=== PATIENT | male | born 1965 | race Caucasian/White ===

== ENCOUNTER 2017-11-23 09:54 | Observation (INO) | payer MEDICARE, MEDICAID ==
[~2017-11-23] VITALS: Ht 170.2 cm; Wt 70.0 kg
[~2017-11-23 09:54] MED LIST: DIAZ5TAB PO; HYDR-3307 PO
[2017-11-23] MEDS ORDERED: DIPHENHYDRAMINE 25 MG CAPSULE ONE (10:24)
[2017-11-23] MEDS ORDERED: LORazepam 1MG TABLET ONE (10:25)
[2017-11-23] MEDS ORDERED: HALOPERIDOL 5 MG/ML ONE (10:29)
[2017-11-23] MEDS ORDERED: LORazepam 2 MG/ML, 1ML IM PRN ×2 (10:30→14:30)
[2017-11-23] MEDS ORDERED: DIPHENHYDRAMINE 25 MG CAPSULE PO ONE (10:30)
[2017-11-23] MEDS ORDERED: HALOPERIDOL 5 MG/ML IM ONE (10:30)
[2017-11-23] MEDS ORDERED: LORazepam 1MG TABLET PO ONE (10:30)
[2017-11-23 10:49] LABS: BASOPHILS # (AUTO) 0.03 x10^3/uL (0-0.1); BASOPHILS % (AUTO) 0 % (0-1); EOSINOPHILS # (AUTO) 0.22 x10^3/uL (0-0.4); EOSINOPHILS % (AUTO) 3 % (1-7); LYMPHOCYTES # (AUTO) 1.65 x10^3/uL (1-3.4); LYMPHOCYTES % (AUTO) 21 % (22-44); MD NO; MEAN CORPUSCULAR HEMOGLOBIN 30.6 pg (27.5-34.5); MEAN CORPUSCULAR HGB CONC 34.7 g/dL (33.2-36.2); MEAN CORPUSCULAR VOLUME 88.1 fL (81-97); MEAN PLATELET VOLUME 7.7 fL (7.4-10.4); MONOCYTES # (AUTO) 0.93 x10^3/uL (0.2-0.8); MONOCYTES % (AUTO) 12 % (2-9); NEUTROPHILS # (AUTO) 5.17 x10^3/uL (1.8-6.8); NEUTROPHILS % (AUTO) 65 % (42-75); PLATELET COUNT 209 x10^3/uL (130-400); RED BLOOD COUNT 5.05 x10^6/uL (4.38-5.82); RED CELL DISTRIBUTION WIDTH 15.2 % (9.4-14.8)
[2017-11-23 10:57] LABS: ALANINE AMINOTRANSFERASE 269 U/L (12-78); ALBUMIN 3.6 g/dL (3.4-5.0); ANION GAP 8 mmol/L (5-15); CALCIUM 8.1 mg/dL (8.5-10.1); CHLORIDE 102 mmol/L (98-107); CREATININE 0.87 mg/dL (0.7-1.3)
[2017-11-23 11:00] LABS: ALKALINE PHOSPHATASE 113 U/L (45-117); BILIRUBIN,TOTAL 0.9 mg/dL (0.2-1.0); TOTAL PROTEIN 7.5 g/dL (6.4-8.2)
[2017-11-23 11:03] LABS: ACETAMINOPHEN < 2 mcg/mL (10-30); SALICYLATE LEVEL < 1.7 mg/dL (2.8-20.0)
[2017-11-23 11:25] LABS: MICROSCOPIC NOT IND
[2017-11-23 11:28] LABS: CULTURE INDICATED? NO
[2017-11-23 11:46] LABS: AMPHETAMINE SCREEN, URINE Positive (Negative); BARBITURATE SCREEN, URINE Negative (Negative); BENZODIAZEPINE SCREEN, URINE Negative (Negative); CANNABINOID SCREEN, URINE Positive (Negative); COCAINE SCREEN, URINE Negative (Negative); METHADONE SCREEN, URINE Negative (Negative); OPIATE SCREEN, URINE Negative (Negative)
[2017-11-23] MEDS ORDERED: LISI-167 PO (14:05)
[2017-11-23] MEDS ORDERED: ARIP5TAB13 PO (14:05)
[2017-11-23] MEDS ORDERED: PARO20TA4 PO (14:05)
[2017-11-23] MEDS ORDERED: CLON0.1T PO (14:05)
[2017-11-23] MEDS ORDERED: NICO-487 TD (14:05)
[2017-11-23] MEDS ORDERED: ATEN100T PO (14:05)
[2017-11-23] MEDS ORDERED: BENZ2TAB6 PO (14:05)
[2017-11-23] MEDS ORDERED: ONDANSETRON ODT 4 MG PO PRN (14:30)
[2017-11-23] MEDS ORDERED: ZIPRASIDONE 20 MG INJ IM PRN (14:30)
[2017-11-23] MEDS ORDERED: NICOTINE 21 MG/24 HR PATCH.TD24 TD SCH (14:30)
[2017-11-23] MEDS: PLEASE ENTER HEIGHT AND WEIGHT MC SCH ×2 (16:21→22:30)
[2017-11-23] MEDS: ATENOLOL 100 MG TABLET PO SCH (22:00)
[2017-11-24] MEDS: PLEASE ENTER HEIGHT AND WEIGHT MC SCH ×3 (06:30→22:30)
[2017-11-24] MEDS ORDERED: ZIPRASIDONE 20 MG INJ IM ONE (07:42)
[2017-11-24] MEDS: ARIPIPRAZOLE 5 MG TABLET PO SCH (09:00)
[2017-11-24] MEDS: NICOTINE 21 MG/24 HR PATCH.TD24 TD SCH (09:00)
[2017-11-24] MEDS: BENZTROPINE 1 MG TABLET PO SCH (09:00)
[2017-11-24] MEDS: ATENOLOL 100 MG TABLET PO SCH ×2 (09:00→20:27)
[2017-11-24] MEDS: PAROXETINE 20 MG TABLET PO SCH (09:00)
[2017-11-24] MEDS ORDERED: ATENOLOL 50 MG TABLET ONE ×2 (09:04→20:22)
[2017-11-24] MEDS: LISINOPRIL 10 MG TABLET PO SCH (09:14)
[2017-11-24 20:13] VITALS: BP 134/78
[2017-11-24] MEDS: ACETAMINOPHEN 325 MG TABLET PO PRN (20:26)
[2017-11-25] MEDS: PLEASE ENTER HEIGHT AND WEIGHT MC SCH ×3 (06:30→22:30)
[2017-11-25] MEDS: ARIPIPRAZOLE 5 MG TABLET PO SCH (08:19)
[2017-11-25] MEDS: ATENOLOL 100 MG TABLET PO SCH ×2 (08:20→20:51)
[2017-11-25] MEDS: LISINOPRIL 10 MG TABLET PO SCH (08:20)
[2017-11-25] MEDS: BENZTROPINE 1 MG TABLET PO SCH (08:21)
[2017-11-25] MEDS: NICOTINE 21 MG/24 HR PATCH.TD24 TD SCH (08:22)
[2017-11-25] MEDS: PAROXETINE 20 MG TABLET PO SCH (08:25)
[2017-11-25 08:35] VITALS: BP 137/76
[2017-11-25] MEDS: ACETAMINOPHEN 325 MG TABLET PO PRN (15:11)
[2017-11-25 20:07] VITALS: BP 142/79
[2017-11-26] MEDS: PLEASE ENTER HEIGHT AND WEIGHT MC SCH (06:30)
[2017-11-26 08:00] VITALS: BP 144/83
[2017-11-26] MEDS ORDERED: DIPHENHYDRAMINE 25 MG CAPSULE PO PRN (09:30)
[2017-11-26] MEDS: ARIPIPRAZOLE 5 MG TABLET PO SCH (10:03)
[2017-11-26] MEDS: BENZTROPINE 1 MG TABLET PO SCH (10:03)
[2017-11-26] MEDS: PAROXETINE 20 MG TABLET PO SCH (10:03)
[2017-11-26] MEDS: ATENOLOL 100 MG TABLET PO SCH (10:03)
[2017-11-26] MEDS: LISINOPRIL 10 MG TABLET PO SCH (10:04)
[2017-11-26] MEDS: NICOTINE 21 MG/24 HR PATCH.TD24 TD SCH (10:04)
== END 2017-11-26 12:04 ==
LOC: ED 12:20 → EDIP 12:22 → SUATTDRO 13:50 → ED 14:01 → 2N 11-24 07:28
PROVIDERS: ADMIT Internal Medicine; ATTEND Internal Medicine
DX: R45.851 Suicidal ideations (principal); F31.9 Bipolar disorder, unspecified; F23 Brief psychotic disorder; F64.9 Gender identity disorder, unspecified; I10 Essential (primary) hypertension; M54.9 Dorsalgia, unspecified; F15.10 Other stimulant abuse, uncomplicated; F12.20 Cannabis dependence, uncomplicated; Z87.891 Personal history of nicotine dependence; Z90.49 Acquired absence of other specified parts of digestive tract; Z91.14 Patient's other noncompliance with medication regimen
CPT/HCPCS: 36415; 80053; 80307; 80329; 81003; 85025; 86704; 86706; 86708; 86803; 87340; 93005; 96372; 99285; G0378; J1630; J3486; Q0163; G0480

== ENCOUNTER 2018-01-20 12:34 | Emergency (ER) | payer MEDICARE, MEDICAID ==
[~2018-01-20] VITALS: Ht 170.2 cm; Wt 59.0 kg
[~2018-01-20 12:34] MED LIST changes: +ARIP5TAB13 PO; +ATEN100T PO; +BENZ2TAB6 PO; +CLON0.1T PO; +LISI-167 PO; +NICO-487 TD; +PARO20TA4 PO
[2018-01-20 12:42] VITALS: BP 108/72
[2018-01-20] MEDS ORDERED: HYDROcodone/APAP 5/325 TABLET PO ONE (13:00)
[2018-01-20] MEDS ORDERED: HYDROcodone/APAP 5/325 TABLET ONE (13:04)
== END 2018-01-20 13:21 | disposition home or self-care (01) ==
LOC: ED 13:05
DX: Z48.01 Encounter for change or removal of surgical wound dressing (principal); I10 Essential (primary) hypertension
CPT/HCPCS: 99283

== ENCOUNTER 2018-03-26 03:03 | Emergency (ER) | payer MEDICAID, OTHER ==
[~2018-03-26] VITALS: Ht 180.3 cm; Wt 64.0 kg
[2018-03-26 03:07] VITALS: BP 139/89
[2018-03-26] MEDS ORDERED: KETOROLAC 30 MG/1 ML ONE (03:28)
[2018-03-26] MEDS ORDERED: KETOROLAC 30 MG/1 ML IM ONE (03:30)
== END 2018-03-26 03:43 | disposition home or self-care (01) ==
LOC: ED 03:38
DX: G89.29 Other chronic pain (principal); M54.5 Low back pain; I10 Essential (primary) hypertension
CPT/HCPCS: 96372; 99283; J1885

== ENCOUNTER 2018-03-27 12:47 | Emergency (ER) | payer MEDICAID ==
[~2018-03-27] VITALS: Ht 167.6 cm; Wt 66.0 kg
[2018-03-27] MEDS ORDERED: hydrOXyzine 10MG TABLET ONE (13:21)
[2018-03-27] MEDS ORDERED: hydrOXyzine 10MG TABLET PO ONE (13:30)
[2018-03-27 14:11] VITALS: BP 124/86
== END 2018-03-27 14:32 | disposition home or self-care (01) ==
LOC: ED 14:26
DX: F41.1 Generalized anxiety disorder (principal); I10 Essential (primary) hypertension
CPT/HCPCS: 99284

== ENCOUNTER 2018-03-30 08:31 | Emergency (ER) | payer MEDICARE, MEDICAID ==
[~2018-03-30] VITALS: Ht 170.2 cm; Wt 63.0 kg
[2018-03-30] MEDS ORDERED: LORazepam 1MG TABLET ONE (08:53)
[2018-03-30] MEDS ORDERED: LORazepam 1MG TABLET PO ONE (09:00)
[2018-03-30] MEDS ORDERED: PAROXETINE 20 MG TABLET PO SCH (09:00)
[2018-03-30 09:45] VITALS: BP 160/109
== END 2018-03-30 10:08 | disposition home or self-care (01) ==
LOC: ED 08:55
DX: F41.1 Generalized anxiety disorder (principal); I10 Essential (primary) hypertension; F20.9 Schizophrenia, unspecified; F31.9 Bipolar disorder, unspecified; F12.10 Cannabis abuse, uncomplicated
CPT/HCPCS: 99283; 99284

== ENCOUNTER 2018-03-31 11:22 | Observation (INO) | payer MEDICARE, MEDICAID ==
[~2018-03-31] VITALS: Ht 170.2 cm; Wt 63.5 kg
[2018-03-31 11:59] LABS: BASOPHILS # (AUTO) 0.02 x10^3/uL (0-0.1); BASOPHILS % (AUTO) 0 % (0-1); EOSINOPHILS # (AUTO) 0.05 x10^3/uL (0-0.4); EOSINOPHILS % (AUTO) 1 % (1-7); LYMPHOCYTES # (AUTO) 1.83 x10^3/uL (1-3.4); LYMPHOCYTES % (AUTO) 20 % (22-44); MD NO; MEAN CORPUSCULAR HEMOGLOBIN 28.9 pg (27.5-34.5); MEAN CORPUSCULAR HGB CONC 33.8 g/dL (33.2-36.2); MEAN CORPUSCULAR VOLUME 85.3 fL (81-97); MEAN PLATELET VOLUME 7.7 fL (7.4-10.4); MONOCYTES # (AUTO) 0.41 x10^3/uL (0.2-0.8); MONOCYTES % (AUTO) 4 % (2-9); NEUTROPHILS % (AUTO) 75 % (42-75); PLATELET COUNT 269 x10^3/uL (130-400); RED BLOOD COUNT 6.16 x10^6/uL (4.38-5.82); RED CELL DISTRIBUTION WIDTH 12.6 % (9.4-14.8)
[2018-03-31 12:04] LABS: AMPHETAMINE SCREEN, URINE Negative (Negative); BARBITURATE SCREEN, URINE Negative (Negative); BENZODIAZEPINE SCREEN, URINE Negative (Negative); CANNABINOID SCREEN, URINE Positive (Negative); COCAINE SCREEN, URINE Negative (Negative); METHADONE SCREEN, URINE Negative (Negative); OPIATE SCREEN, URINE Negative (Negative)
[2018-03-31 12:10] LABS: ALBUMIN 3.7 g/dL (3.4-5.0); ANION GAP 7 mmol/L (5-15); CALCIUM 8.8 mg/dL (8.5-10.1); CHLORIDE 102 mmol/L (98-107)
[2018-03-31 12:15] LABS: CREATININE 0.87 mg/dL (0.7-1.3)
[2018-03-31 12:16] LABS: ALANINE AMINOTRANSFERASE 179 U/L (12-78); ALKALINE PHOSPHATASE 126 U/L (45-117); BILIRUBIN,TOTAL 0.8 mg/dL (0.2-1.0); SALICYLATE LEVEL 2.2 mg/dL (2.8-20.0); TOTAL PROTEIN 7.9 g/dL (6.4-8.2)
[2018-03-31 12:18] LABS: ACETAMINOPHEN < 2 mcg/mL (10-30)
[2018-03-31] MEDS ORDERED: ONDANSETRON 2MG/ML, 2ML IVPush PRN (13:30)
[2018-03-31] MEDS ORDERED: ACETAMINOPHEN 325 MG TABLET PO PRN (13:30)
[2018-03-31] MEDS ORDERED: LORazepam 1MG TABLET PO PRN (13:30)
[2018-03-31] MEDS ORDERED: LORazepam 1MG TABLET ONE (13:48)
[2018-03-31] MEDS ORDERED: ATENOLOL 100 MG TABLET PO SCH (21:00)
[2018-03-31] MEDS ORDERED: CLONIDINE HCL 0.1 MG PO SCH (21:00)
[2018-03-31 21:39] VITALS: BP 159/90
[2018-04-01] MEDS ORDERED: NICOTINE TD SCH (09:00)
[2018-04-01] MEDS ORDERED: LISINOPRIL 10 MG TABLET PO SCH (09:00)
[2018-04-01] MEDS ORDERED: BENZTROPINE MESYLATE 2 MG PO SCH (09:00)
[2018-04-01] MEDS ORDERED: ARIPIPRAZOLE 5 MG TABLET PO SCH (09:00)
[2018-04-01] MEDS ORDERED: PAROXETINE HCL 20 MG PO SCH (09:00)
== END 2018-03-31 22:31 ==
LOC: ED 12:53 → EDIP 12:54 → ED 13:08
PROVIDERS: ADMIT Hospitalist; ATTEND Hospitalist
DX: R45.851 Suicidal ideations (principal); F33.2 Major depressive disorder, recurrent severe without psychotic features; I10 Essential (primary) hypertension; G47.00 Insomnia, unspecified; F12.20 Cannabis dependence, uncomplicated; F17.210 Nicotine dependence, cigarettes, uncomplicated; F22 Delusional disorders
CPT/HCPCS: 36415; 80053; 80307; 80329; 85025; 99285; G0378; G0480

== ENCOUNTER 2018-04-18 14:42 | Emergency (ER) | payer MEDICARE, MEDICAID ==
[~2018-04-18] VITALS: Ht 170.2 cm; Wt 66.8 kg
[2018-04-18] MEDS ORDERED: DIPH25TA65 PO (15:12)
[2018-04-18] MEDS ORDERED: LORazepam 1MG TABLET ONE (15:20)
[2018-04-18] MEDS ORDERED: LORazepam 1MG TABLET PO ONE (15:30)
[2018-04-18 15:39] LABS: BASOPHILS # (AUTO) 0.03 x10^3/uL (0-0.1); BASOPHILS % (AUTO) 0 % (0-1); EOSINOPHILS # (AUTO) 0.56 x10^3/uL (0-0.4); EOSINOPHILS % (AUTO) 6 % (1-7); LYMPHOCYTES # (AUTO) 1.98 x10^3/uL (1-3.4); LYMPHOCYTES % (AUTO) 23 % (22-44); MD NO; MEAN CORPUSCULAR HEMOGLOBIN 29.1 pg (27.5-34.5); MEAN CORPUSCULAR HGB CONC 33.4 g/dL (33.2-36.2); MEAN CORPUSCULAR VOLUME 87.3 fL (81-97); MEAN PLATELET VOLUME 8.3 fL (7.4-10.4); MONOCYTES # (AUTO) 0.55 x10^3/uL (0.2-0.8); MONOCYTES % (AUTO) 6 % (2-9); NEUTROPHILS # (AUTO) 5.65 x10^3/uL (1.8-6.8); NEUTROPHILS % (AUTO) 64 % (42-75); PLATELET COUNT 197 x10^3/uL (130-400); RED BLOOD COUNT 5.16 x10^6/uL (4.38-5.82); RED CELL DISTRIBUTION WIDTH 15.4 % (9.4-14.8)
[2018-04-18 15:51] LABS: ALBUMIN 3.5 g/dL (3.4-5.0); ANION GAP 3 mmol/L (5-15); CALCIUM 8.7 mg/dL (8.5-10.1); CHLORIDE 109 mmol/L (98-107); CREATININE 0.85 mg/dL (0.7-1.3)
[2018-04-18 15:52] LABS: SALICYLATE LEVEL < 1.7 mg/dL (2.8-20.0)
[2018-04-18 15:54] LABS: ACETAMINOPHEN < 2 mcg/mL (10-30)
[2018-04-18 15:54] LABS: AMPHETAMINE SCREEN, URINE Positive (Negative); BARBITURATE SCREEN, URINE Negative (Negative); BENZODIAZEPINE SCREEN, URINE Negative (Negative); CANNABINOID SCREEN, URINE Positive (Negative); COCAINE SCREEN, URINE Negative (Negative); METHADONE SCREEN, URINE Negative (Negative); OPIATE SCREEN, URINE Negative (Negative)
[2018-04-18] MEDS ORDERED: ATENOLOL 100 MG TABLET PO ONE (16:05)
[2018-04-18] MEDS ORDERED: LISINOPRIL 10 MG TABLET ONE (16:15)
[2018-04-18] MEDS ORDERED: LISINOPRIL 10 MG TABLET PO ONE (16:30)
[2018-04-18 17:19] VITALS: BP 182/113
== END 2018-04-18 17:25 | disposition home or self-care (01) ==
LOC: ED 15:21
DX: F15.10 Other stimulant abuse, uncomplicated (principal); F41.9 Anxiety disorder, unspecified; I10 Essential (primary) hypertension; Z72.89 Other problems related to lifestyle; Z79.899 Other long term (current) drug therapy; F17.200 Nicotine dependence, unspecified, uncomplicated
CPT/HCPCS: 36415; 80048; 80307; 80329; 82040; 85025; 99284; G0480

== ENCOUNTER 2018-04-19 09:07 | Emergency (ER) | payer MEDICARE, MEDICAID ==
[~2018-04-19] VITALS: Ht 170.2 cm; Wt 65.0 kg
[~2018-04-19 09:07] MED LIST changes: +DIPH25TA65 PO
[2018-04-19 09:10] VITALS: BP 153/97
[2018-04-19] MEDS ORDERED: SULFAMETH./TRIMETHOPRIM DS 800MG/160MG TABLET PO ONE (09:30)
[2018-04-19] MEDS ORDERED: HYDROcodone/APAP 5/325 TABLET PO ONE (09:30)
[2018-04-19] MEDS ORDERED: CEPHALEXIN 500 MG CAPSULE PO ONE (09:30)
[2018-04-19] MEDS ORDERED: IBUPROFEN 200 MG TABLET PO ONE (09:30)
[2018-04-19] MEDS ORDERED: HYDROcodone/APAP 5/325 TABLET ONE ×2 (09:40→09:46)
[2018-04-19] MEDS ORDERED: CEPHALEXIN 500 MG CAPSULE ONE (09:41)
[2018-04-19] MEDS ORDERED: IBUPROFEN 200 MG TABLET ONE (09:41)
[2018-04-19] MEDS ORDERED: SULFAMETH./TRIMETHOPRIM DS 800MG/160MG TABLET ONE (09:41)
== END 2018-04-19 10:08 | disposition home or self-care (01) ==
LOC: ED 09:42
DX: L02.01 Cutaneous abscess of face (principal); M54.5 Low back pain; F41.1 Generalized anxiety disorder; F20.9 Schizophrenia, unspecified; F31.9 Bipolar disorder, unspecified; I10 Essential (primary) hypertension; Z90.49 Acquired absence of other specified parts of digestive tract
CPT/HCPCS: 99284

== ENCOUNTER 2018-08-24 11:58 | Emergency (ER) | payer MEDICAID, MEDICARE ==
[~2018-08-24] VITALS: Ht 170.2 cm; Wt 62.6 kg
[2018-08-24 13:51] LABS: BASOPHILS # (AUTO) 0.05 x10^3/uL (0-0.1); BASOPHILS % (AUTO) 0 % (0-1); EOSINOPHILS # (AUTO) 0.14 x10^3/uL (0-0.4); EOSINOPHILS % (AUTO) 1 % (1-7); LYMPHOCYTES # (AUTO) 1.92 x10^3/uL (1-3.4); LYMPHOCYTES % (AUTO) 16 % (22-44); MD NO; MEAN CORPUSCULAR HEMOGLOBIN 30.4 pg (27.5-34.5); MEAN CORPUSCULAR HGB CONC 34.4 g/dL (33.2-36.2); MEAN CORPUSCULAR VOLUME 88.5 fL (81-97); MEAN PLATELET VOLUME 7.5 fL (7.4-10.4); MONOCYTES # (AUTO) 0.81 x10^3/uL (0.2-0.8); MONOCYTES % (AUTO) 7 % (2-9); NEUTROPHILS # (AUTO) 8.89 x10^3/uL (1.8-6.8); NEUTROPHILS % (AUTO) 75 % (42-75); PLATELET COUNT 326 x10^3/uL (130-400); RED BLOOD COUNT 4.74 x10^6/uL (4.38-5.82); RED CELL DISTRIBUTION WIDTH 14.4 % (9.4-14.8)
[2018-08-24 13:56] VITALS: BP 124/84
[2018-08-24 14:03] LABS: ALANINE AMINOTRANSFERASE 117 U/L (12-78); ALBUMIN 3.9 g/dL (3.4-5.0); ANION GAP 11 mmol/L (5-15); CALCIUM 8.9 mg/dL (8.5-10.1); CHLORIDE 100 mmol/L (98-107); CREATININE 1.13 mg/dL (0.7-1.3)
[2018-08-24 14:05] LABS: ALKALINE PHOSPHATASE 94 U/L (45-117); BILIRUBIN,TOTAL 1.3 mg/dL (0.2-1.0); TOTAL PROTEIN 7.5 g/dL (6.4-8.2)
== END 2018-08-24 15:07 | disposition home or self-care (01) ==
LOC: ED 14:19
DX: J39.8 Other specified diseases of upper respiratory tract (principal); I10 Essential (primary) hypertension; Z59.0 Homelessness; Z76.0 Encounter for issue of repeat prescription; Z72.9 Problem related to lifestyle, unspecified; M79.10 Myalgia, unspecified site
CPT/HCPCS: 36415; 71046; 80053; 85025; 87806; 99284; G0475

== ENCOUNTER 2018-08-26 14:21 | Emergency (ER) | payer MEDICARE ==
[~2018-08-26] VITALS: Ht 180.3 cm; Wt 55.0 kg
[~2018-08-26 14:21] MED LIST changes: -CLON0.1T PO; +CLON0.1T22 PO
[2018-08-26] MEDS ORDERED: ZIPRASIDONE 20 MG INJ IM ONE ×5 (14:24→21:08)
[2018-08-26 15:18] LABS: LYMPHOCYTES % (AUTO) 30 % (22-44); MEAN CORPUSCULAR HEMOGLOBIN 30.7 pg (27.5-34.5); MEAN CORPUSCULAR HGB CONC 34.4 g/dL (33.2-36.2); MEAN CORPUSCULAR VOLUME 89.4 fL (81-97); MEAN PLATELET VOLUME 7.6 fL (7.4-10.4); MONOCYTES % (AUTO) 9 % (2-9); NEUTROPHILS % (AUTO) 58 % (42-75); PLATELET COUNT 279 x10^3/uL (130-400); RED BLOOD COUNT 4.91 x10^6/uL (4.38-5.82); RED CELL DISTRIBUTION WIDTH 14.7 % (9.4-14.8)
[2018-08-26 15:19] LABS: BASOPHILS % (AUTO) 0 % (0-1); EOSINOPHILS # (AUTO) 0.26 x10^3/uL (0-0.4); EOSINOPHILS % (AUTO) 3 % (1-7); LYMPHOCYTES # (AUTO) 2.33 x10^3/uL (1-3.4); MD NO; NEUTROPHILS # (AUTO) 4.58 x10^3/uL (1.8-6.8)
[2018-08-26 15:22] LABS: ACETAMINOPHEN < 2 mcg/mL (10-30); ALBUMIN 4.3 g/dL (3.4-5.0); ANION GAP 9 mmol/L (5-15); CALCIUM 8.8 mg/dL (8.5-10.1); CHLORIDE 105 mmol/L (98-107); CREATININE 1.12 mg/dL (0.7-1.3); SALICYLATE LEVEL < 1.7 mg/dL (2.8-20.0)
[2018-08-26] MEDS ORDERED: DIAZ5TAB PO (16:26)
[2018-08-26] MEDS ORDERED: LORazepam 1MG TABLET PO PRN (18:00)
[2018-08-26] MEDS ORDERED: POLYETHYLENE GLYCOL 17 GM PACKET PO PRN (18:00)
[2018-08-26] MEDS ORDERED: ONDANSETRON ODT 4 MG PO PRN (18:00)
[2018-08-26 20:45] LABS: AMPHETAMINE SCREEN, URINE Positive (Negative); BARBITURATE SCREEN, URINE Negative (Negative); BENZODIAZEPINE SCREEN, URINE Negative (Negative); CANNABINOID SCREEN, URINE Positive (Negative); COCAINE SCREEN, URINE Negative (Negative); METHADONE SCREEN, URINE Negative (Negative); OPIATE SCREEN, URINE Negative (Negative)
[2018-08-27] MEDS ORDERED: LORazepam 1MG TABLET ONE (06:46)
[2018-08-27] MEDS ORDERED: ZIPRASIDONE 20 MG INJ IM ONE ×2 (06:49→07:00)
[2018-08-27] MEDS ORDERED: BENZTROPINE MESYLATE 2 MG PO SCH (09:00)
[2018-08-27] MEDS ORDERED: SENNA/DOCUSATE TABLET PO SCH (09:00)
[2018-08-27] MEDS ORDERED: LISINOPRIL 10 MG TABLET PO SCH (09:00)
[2018-08-27] MEDS ORDERED: ARIPIPRAZOLE 5 MG TABLET PO SCH (09:00)
[2018-08-27 09:29] LABS: BASOPHILS # (AUTO) 0.03 x10^3/uL (0-0.1); BASOPHILS % (AUTO) 1 % (0-1); EOSINOPHILS # (AUTO) 0.23 x10^3/uL (0-0.4); EOSINOPHILS % (AUTO) 5 % (1-7); LYMPHOCYTES # (AUTO) 1.78 x10^3/uL (1-3.4); LYMPHOCYTES % (AUTO) 35 % (22-44); MD NO; MEAN CORPUSCULAR HEMOGLOBIN 29.5 pg (27.5-34.5); MEAN CORPUSCULAR VOLUME 89.4 fL (81-97); MEAN PLATELET VOLUME 7.6 fL (7.4-10.4); MONOCYTES # (AUTO) 0.59 x10^3/uL (0.2-0.8); MONOCYTES % (AUTO) 12 % (2-9); NEUTROPHILS # (AUTO) 2.46 x10^3/uL (1.8-6.8); NEUTROPHILS % (AUTO) 48 % (42-75); PLATELET COUNT 233 x10^3/uL (130-400); RED BLOOD COUNT 4.76 x10^6/uL (4.38-5.82); RED CELL DISTRIBUTION WIDTH 14.7 % (9.4-14.8)
[2018-08-27 09:37] LABS: ALBUMIN 3.1 g/dL (3.4-5.0); ANION GAP 5 mmol/L (5-15); CALCIUM 8.5 mg/dL (8.5-10.1); CHLORIDE 109 mmol/L (98-107)
[2018-08-27 09:40] LABS: ALANINE AMINOTRANSFERASE 83 U/L (12-78); ALKALINE PHOSPHATASE 80 U/L (45-117); BILIRUBIN,TOTAL 0.4 mg/dL (0.2-1.0); TOTAL PROTEIN 6.7 g/dL (6.4-8.2)
[2018-08-27] MEDS ORDERED: BENZTROPINE 1 MG TABLET ONE (10:29)
[2018-08-27] MEDS ORDERED: ARIPIPRAZOLE 15 MG TABLET ONE (10:29)
[2018-08-27] MEDS ORDERED: LISINOPRIL 10 MG TABLET ONE (10:29)
[2018-08-27] MEDS ORDERED: SENNA/DOCUSATE TABLET ONE (10:29)
[2018-08-27 10:38] VITALS: BP 160/94
[2018-08-27] MEDS ORDERED: PAROXETINE 20 MG TABLET PO SCH (12:00)
[2018-08-28] MEDS ORDERED: BENZTROPINE 1 MG TABLET PO SCH (11:48)
== END 2018-08-27 11:01 | disposition home or self-care (01) ==
LOC: ED 17:15 → UNDOADMOB 18:30 → EDIP 18:30
DX: R45.1 Restlessness and agitation (principal); R45.851 Suicidal ideations; F31.9 Bipolar disorder, unspecified; I10 Essential (primary) hypertension; F20.9 Schizophrenia, unspecified; F41.1 Generalized anxiety disorder; Z90.49 Acquired absence of other specified parts of digestive tract
CPT/HCPCS: 36415; 80048; 80053; 80307; 80329; 82040; 85025; 96372; 99283; J3486; G0480

== ENCOUNTER 2018-09-06 18:26 | Observation (INO) | payer MEDICARE, MEDICAID ==
[~2018-09-06] VITALS: Ht 167.6 cm; Wt 65.0 kg
[2018-09-06 19:12] LABS: BASOPHILS # (AUTO) 0.05 x10^3/uL (0-0.1); BASOPHILS % (AUTO) 0 % (0-1); EOSINOPHILS # (AUTO) 0.54 x10^3/uL (0-0.4); EOSINOPHILS % (AUTO) 5 % (1-7); LYMPHOCYTES # (AUTO) 3.49 x10^3/uL (1-3.4); LYMPHOCYTES % (AUTO) 29 % (22-44); MD NO; MEAN CORPUSCULAR HEMOGLOBIN 30.4 pg (27.5-34.5); MEAN CORPUSCULAR HGB CONC 34.5 g/dL (33.2-36.2); MEAN CORPUSCULAR VOLUME 88.2 fL (81-97); MEAN PLATELET VOLUME 7.9 fL (7.4-10.4); MONOCYTES # (AUTO) 0.73 x10^3/uL (0.2-0.8); MONOCYTES % (AUTO) 6 % (2-9); NEUTROPHILS # (AUTO) 7.08 x10^3/uL (1.8-6.8); NEUTROPHILS % (AUTO) 60 % (42-75); PLATELET COUNT 273 x10^3/uL (130-400); RED BLOOD COUNT 4.86 x10^6/uL (4.38-5.82); RED CELL DISTRIBUTION WIDTH 14.5 % (9.4-14.8)
[2018-09-06 19:21] LABS: ALBUMIN 3.4 g/dL (3.4-5.0); ANION GAP 5 mmol/L (5-15); CALCIUM 8.7 mg/dL (8.5-10.1); CHLORIDE 104 mmol/L (98-107); CREATININE 0.87 mg/dL (0.7-1.3)
[2018-09-06 19:27] LABS: ACETAMINOPHEN < 2 mcg/mL (10-30); SALICYLATE LEVEL < 1.7 mg/dL (2.8-20.0)
[2018-09-06 19:31] LABS: AMPHETAMINE SCREEN, URINE Positive (Negative); BARBITURATE SCREEN, URINE Negative (Negative); BENZODIAZEPINE SCREEN, URINE Negative (Negative); CANNABINOID SCREEN, URINE Positive (Negative); COCAINE SCREEN, URINE Negative (Negative); METHADONE SCREEN, URINE Negative (Negative); OPIATE SCREEN, URINE Negative (Negative)
[2018-09-06] MEDS ORDERED: LORazepam 2 MG/ML, 1ML IVPush ONE (20:30)
[2018-09-06] MEDS: ATENOLOL 100 MG TABLET PO SCH (20:55)
[2018-09-06] MEDS ORDERED: DIPHENHYDRAMINE 50 MG CAPSULE PO PRN (21:00)
[2018-09-06] MEDS ORDERED: ACETAMINOPHEN 325 MG TABLET PO PRN (21:00)
[2018-09-06] MEDS ORDERED: ZIPRASIDONE 20 MG INJ IM PRN (21:00)
[2018-09-06] MEDS ORDERED: ONDANSETRON ODT 4 MG PO PRN (21:00)
[2018-09-06] MEDS ORDERED: POLYETHYLENE GLYCOL 17 GM PACKET PO PRN (21:00)
[2018-09-06] MEDS ORDERED: ZIPRASIDONE 20MG CAPSULE PO PRN (21:00)
[2018-09-06] MEDS ORDERED: DOCUSATE 100 MG CAPSULE PO PRN (21:00)
[2018-09-06] MEDS ORDERED: DIAZEPAM 5 MG TABLET ONE (21:26)
[2018-09-06] MEDS ORDERED: AMLODIPINE 5 MG TABLET ONE (21:26)
[2018-09-06] MEDS: AMLODIPINE 5 MG TABLET PO SCH (21:29)
[2018-09-06] MEDS: DIAZEPAM 5 MG TABLET PO SCH ×2 (21:29→23:57)
[2018-09-06 23:38] VITALS: BP 133/82
[2018-09-07 08:00] VITALS: BP 145/89
[2018-09-07] MEDS: AMLODIPINE 5 MG TABLET PO SCH (08:14)
[2018-09-07] MEDS: ATENOLOL 100 MG TABLET PO SCH (08:15)
[2018-09-07] MEDS: PAROXETINE 20 MG TABLET PO SCH (08:15)
[2018-09-07] MEDS: BENZTROPINE 1 MG TABLET PO SCH (08:15)
[2018-09-07] MEDS: ARIPIPRAZOLE 5 MG TABLET PO SCH (08:16)
[2018-09-07] MEDS: DIAZEPAM 5 MG TABLET PO SCH (08:26)
[2018-09-07] MEDS ORDERED: LISINOPRIL 10 MG TABLET PO SCH (09:00)
[2018-09-08 08:00] VITALS: BP_SYST 113; BP_SYST 144; BP_DIAS 75; BP_DIAS 85
[2018-09-08] MEDS: ARIPIPRAZOLE 5 MG TABLET PO SCH (08:02)
[2018-09-08] MEDS: BENZTROPINE 1 MG TABLET PO SCH (08:03)
[2018-09-08] MEDS: AMLODIPINE 5 MG TABLET PO SCH (08:03)
[2018-09-08] MEDS: DIAZEPAM 5 MG TABLET PO SCH (08:03)
[2018-09-08] MEDS: PAROXETINE 20 MG TABLET PO SCH (08:03)
[2018-09-08] MEDS ORDERED: AMLO-150 PO (13:18)
== END 2018-09-08 15:00 ==
LOC: ED 20:36 → SUATTDRO 20:41 → EDIP 20:52 → INTOOBSV 20:52 → 2N 23:35
PROVIDERS: ADMIT Family Medicine; ATTEND Internal Medicine
DX: R45.851 Suicidal ideations (principal); R45.850 Homicidal ideations; F31.9 Bipolar disorder, unspecified; I10 Essential (primary) hypertension; I25.10 Atherosclerotic heart disease of native coronary artery without angina pectoris; B19.20 Unspecified viral hepatitis C without hepatic coma; F12.10 Cannabis abuse, uncomplicated; F15.10 Other stimulant abuse, uncomplicated; F17.210 Nicotine dependence, cigarettes, uncomplicated; F20.9 Schizophrenia, unspecified; Z79.899 Other long term (current) drug therapy; Z91.14 Patient's other noncompliance with medication regimen; Z91.5 Personal history of self-harm
CPT/HCPCS: 36415; 80048; 80307; 80329; 82040; 85025; 96372; 99284; G0378; J3486; G0480

== ENCOUNTER 2019-01-26 06:57 | Emergency (ER) | payer MEDICARE, MEDICAID ==
[~2019-01-26] VITALS: Ht 160 cm; Wt 59.0 kg
[~2019-01-26 06:57] MED LIST changes: +AMLO-150 PO
[2019-01-26 07:07] VITALS: BP 169/116
== END 2019-01-26 07:52 ==
LOC: ED 07:46
DX: F15.20 Other stimulant dependence, uncomplicated (principal); F19.959 Other psychoactive substance use, unspecified with psychoactive substance-induced psychotic disorder, unspecified; F34.9 Persistent mood [affective] disorder, unspecified; F41.1 Generalized anxiety disorder; F20.9 Schizophrenia, unspecified; I10 Essential (primary) hypertension; F31.9 Bipolar disorder, unspecified
CPT/HCPCS: 99283

== ENCOUNTER 2019-07-15 15:40 | Emergency (ER) | payer MEDICARE, MEDICAID ==
[~2019-07-15] VITALS: Ht 170.2 cm; Wt 68.0 kg
[~2019-07-15 15:40] MED LIST changes: -HYDR-3307 PO; +HYDR-36 PO
[2019-07-15] MEDS ORDERED: LORazepam 1MG TABLET PO ONE (16:00)
--- NOTE | 2019-07-15 16:24 | NUR ---
PATIENT IS MALE. IDENTIFIES FEMALE. SHE STATES SHE WANTS "TO RUN INTO TRAFFIC OR CRASH HER CAR AND ". PATIENT ALSO COMPLAINS OF LEFT SHOULDER PAIN. RATES PAIN AT 8/10. PATIENT IS ON LEGAL HOLD FO SI. PATIENT BELONGINGS HAVE BEEN INVENTORIED AND STORED INTO STORAGE LOCKER. PATIENT WILL BE WATCHED AROUND THE CLOCK. PATIENT IS RESTING ON BED. PATIENT IS NOT CURRENTLY IN A SUICIDE SECURED ROOM.
[2019-07-15 16:33] LABS: ALANINE AMINOTRANSFERASE 88 U/L (12-78); ALBUMIN 4.1 g/dL (3.4-5.0); ANION GAP 8 mmol/L (5-15); BASOPHILS % (AUTO) 1 % (0-1); CALCIUM 8.7 mg/dL (8.5-10.1); CHLORIDE 105 mmol/L (98-107); CREATININE 1.01 mg/dL (0.7-1.3); EOSINOPHILS % (AUTO) 2 % (1-7); LYMPHOCYTES # (AUTO) 2.55 x10^3/uL (1-3.4); LYMPHOCYTES % (AUTO) 21 % (22-44); MD NO; MEAN CORPUSCULAR HEMOGLOBIN 30.3 pg (27.5-34.5); MEAN CORPUSCULAR HGB CONC 34.3 g/dL (33.2-36.2); MEAN CORPUSCULAR VOLUME 88.3 fL (81-97); MEAN PLATELET VOLUME 8.1 fL (7.4-10.4); MONOCYTES # (AUTO) 0.97 x10^3/uL (0.2-0.8); MONOCYTES % (AUTO) 8 % (2-9); NEUTROPHILS # (AUTO) 8.36 x10^3/uL (1.8-6.8); NEUTROPHILS % (AUTO) 68 % (42-75); PLATELET COUNT 221 x10^3/uL (130-400); RED BLOOD COUNT 5.34 x10^6/uL (4.38-5.82); RED CELL DISTRIBUTION WIDTH 14.3 % (9.4-14.8); SALICYLATE LEVEL 3.8 mg/dL (2.8-20.0)
[2019-07-15 16:35] LABS: ALKALINE PHOSPHATASE 159 U/L (45-117); BILIRUBIN,TOTAL 0.8 mg/dL (0.2-1.0); TOTAL PROTEIN 7.9 g/dL (6.4-8.2)
[2019-07-15] MEDS ORDERED: LORazepam 1MG TABLET ONE (16:48)
--- NOTE | 2019-07-15 17:46 | NUR ---
TP RN: Carlos POTTS will evaluate pt
--- NOTE | 2019-07-15 17:59 | NUR ---
PT MOVED TO 41. REPORT FROM ESTRELLA MOLINA. PT AWAITING TELEPSYCH.
--- NOTE | 2019-07-15 19:15 | NUR ---
ATTEMPTED T O GET URINE SAMPLE FROM PATIENT. PT STATES UNABLE TO PROVIDE SAMPLE AT THIS TIME. ROOM SECURED. SITTER OUTSIDE ROOM. WILL CONTINUE TO MONITOR.
--- NOTE | 2019-07-15 19:56 | NUR ---
Report to marcelina Carpenter.
[2019-07-15 20:39] VITALS: BP 162/95
--- NOTE | 2019-07-15 20:50 | NUR ---
PT AMBULATES WITH STEADY GAIT. NOW ASKING FOR TAXI VOUCHER. VOUCHER TO CUSTODIAL PROVIDED.
== END 2019-07-15 20:56 | disposition home or self-care (01) ==
LOC: ED 17:02
DX: R45.851 Suicidal ideations (principal); Z76.5 Malingerer [conscious simulation]; I10 Essential (primary) hypertension; F20.9 Schizophrenia, unspecified; F31.9 Bipolar disorder, unspecified
CPT/HCPCS: 36415; 80053; 80307; 85025; 93005; 99284

== ENCOUNTER 2019-12-05 10:17 | Emergency (ER) | payer MEDICARE, MEDICAID ==
[~2019-12-05] VITALS: Ht 170.2 cm; Wt 61.6 kg
--- NOTE | 2019-12-05 11:52 | NUR ---
Pt to room from lobby, ambulatory with steady gait. Pt provided hospital gown to change into and warm blanket. Pt provided privacy to change.
--- NOTE | 2019-12-05 12:16 | NUR ---
YUE RN: ALDA CABRALES TO SEE PT.
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
[2019-12-05 12:23] VITALS: BP 139/84
[2019-12-05] MEDS ORDERED: LORazepam 1MG TABLET PO ONE (12:30)
--- NOTE | 2019-12-05 12:33 | NUR ---
ALDA QUILTING MACHINE HELPER IN ROOM
[2019-12-05 12:37] LABS: BASOPHILS # (AUTO) 0.03 x10^3/uL (0-0.1); BASOPHILS % (AUTO) 0 % (0-1); EOSINOPHILS # (AUTO) 0.28 x10^3/uL (0-0.4); EOSINOPHILS % (AUTO) 3 % (1-7); LYMPHOCYTES # (AUTO) 1.84 x10^3/uL (1-3.4); LYMPHOCYTES % (AUTO) 22 % (22-44); MD NO; MEAN CORPUSCULAR HEMOGLOBIN 29.6 pg (27.5-34.5); MEAN CORPUSCULAR HGB CONC 33.3 g/dL (33.2-36.2); MEAN CORPUSCULAR VOLUME 88.9 fL (81-97); MEAN PLATELET VOLUME 8.4 fL (7.4-10.4); MONOCYTES # (AUTO) 0.57 x10^3/uL (0.2-0.8); MONOCYTES % (AUTO) 7 % (2-9); NEUTROPHILS # (AUTO) 5.54 x10^3/uL (1.8-6.8); NEUTROPHILS % (AUTO) 67 % (42-75); PLATELET COUNT 180 x10^3/uL (130-400); RED BLOOD COUNT 4.53 x10^6/uL (4.38-5.82); RED CELL DISTRIBUTION WIDTH 15.5 % (9.4-14.8)
[2019-12-05 12:48] LABS: ALANINE AMINOTRANSFERASE 130 U/L (12-78); ANION GAP 4 mmol/L (5-15); CALCIUM 8.4 mg/dL (8.5-10.1); CHLORIDE 108 mmol/L (98-107); CREATININE 0.75 mg/dL (0.7-1.3)
[2019-12-05 12:50] LABS: ALKALINE PHOSPHATASE 125 U/L (45-117); BILIRUBIN,TOTAL 0.6 mg/dL (0.2-1.0); TOTAL PROTEIN 7.1 g/dL (6.4-8.2)
[2019-12-05 12:54] LABS: SALICYLATE LEVEL < 1.7 mg/dL (2.8-20.0)
--- NOTE | 2019-12-05 12:57 | NUR ---
REPORT TO SYEDA DE LA ROSA, PLAN OF CARE DISCUSSED
[2019-12-05] MEDS ORDERED: ARIPIPRAZOLE 10 MG TABLET PO SCH (13:00)
[2019-12-05] MEDS ORDERED: PAROXETINE 20 MG TABLET PO SCH (13:00)
[2019-12-05] MEDS ORDERED: DIAZEPAM 5 MG TABLET PO ONE (13:00)
--- NOTE | 2019-12-05 14:00 | NUR ---
ASSUMED CARE. PT SLEEPING IN SECURED ROOM IN DIRECT VIEW OF SITTER.
[2019-12-05] MEDS ORDERED: ARIPIPRAZOLE 10 MG TABLET ONE (15:30)
[2019-12-05] MEDS ORDERED: LORazepam 1MG TABLET ONE (15:30)
[2019-12-05] MEDS ORDERED: DIAZEPAM 5 MG TABLET ONE (15:30)
--- NOTE | 2019-12-05 15:58 | NUR ---
medicated per david. linden held because pt states it makes his legs hurt when he takes it. provided sandwich tray
[2019-12-05 16:09] LABS: MICROSCOPIC AUTO
[2019-12-05 16:11] LABS: CULTURE INDICATED? NO
[2019-12-05 17:11] LABS: AMPHETAMINE SCREEN, URINE Positive (Negative); BARBITURATE SCREEN, URINE Negative (Negative); BENZODIAZEPINE SCREEN, URINE Negative (Negative); CANNABINOID SCREEN, URINE Positive (Negative); COCAINE SCREEN, URINE Negative (Negative); METHADONE SCREEN, URINE Negative (Negative); OPIATE SCREEN, URINE Negative (Negative)
--- NOTE | 2019-12-05 18:23 | NUR ---
TP RN: PT ACCEPTED BY [facility].
--- NOTE | 2019-12-05 18:35 | NUR ---
REPORT TO [facility] AND PT TO BE TRANSPORTED TO FLOOR
[2019-12-05] MEDS ORDERED: QUETIAPINE 25MG TABLET PO SCH (21:00)
== END 2019-12-05 19:00 ==
LOC: ED 13:17
DX: R45.851 Suicidal ideations (principal); F32.9 Major depressive disorder, single episode, unspecified; F41.9 Anxiety disorder, unspecified; F15.10 Other stimulant abuse, uncomplicated; I10 Essential (primary) hypertension
CPT/HCPCS: 36415; 80053; 80307; 81001; 85025; 99285

== ENCOUNTER 2019-12-30 13:35 | Emergency (ER) | payer MEDICARE, MEDICAID ==
[~2019-12-30] VITALS: Ht 170.2 cm; Wt 64.8 kg
[2019-12-30 13:37] VITALS: BP 137/84
[2019-12-30] MEDS ORDERED: hydrOXYzine 50 MG/ML IM PRN (14:00)
[2019-12-30 14:18] LABS: BASOPHILS # (AUTO) 0.04 x10^3/uL (0-0.1); BASOPHILS % (AUTO) 1 % (0-1); EOSINOPHILS # (AUTO) 0.24 x10^3/uL (0-0.4); EOSINOPHILS % (AUTO) 3 % (1-7); LYMPHOCYTES # (AUTO) 2.29 x10^3/uL (1-3.4); LYMPHOCYTES % (AUTO) 27 % (22-44); MD NO; MEAN CORPUSCULAR HGB CONC 33.6 g/dL (33.2-36.2); MEAN CORPUSCULAR VOLUME 89.2 fL (81-97); MEAN PLATELET VOLUME 8.4 fL (7.4-10.4); MONOCYTES # (AUTO) 0.48 x10^3/uL (0.2-0.8); MONOCYTES % (AUTO) 6 % (2-9); NEUTROPHILS # (AUTO) 5.43 x10^3/uL (1.8-6.8); NEUTROPHILS % (AUTO) 64 % (42-75); PLATELET COUNT 246 x10^3/uL (130-400); RED BLOOD COUNT 4.57 x10^6/uL (4.38-5.82); RED CELL DISTRIBUTION WIDTH 14.9 % (9.4-14.8)
[2019-12-30 14:23] LABS: ALBUMIN 3.3 g/dL (3.4-5.0); ANION GAP 6 mmol/L (5-15); CALCIUM 8.7 mg/dL (8.5-10.1); CHLORIDE 104 mmol/L (98-107); CREATININE 0.97 mg/dL (0.7-1.3)
[2019-12-30] MEDS ORDERED: IBUPROFEN 600 MG TABLET PO ONE (14:30)
[2019-12-30] MEDS ORDERED: IBUPROFEN 600 MG TABLET ONE (14:34)
--- NOTE | 2019-12-30 14:46 | NUR ---
MEDICATED FOR EXTREMITY PAIN AND ANXIETY
== END 2019-12-30 15:10 | disposition home or self-care (01) ==
LOC: ED 14:02
DX: F15.10 Other stimulant abuse, uncomplicated (principal); I10 Essential (primary) hypertension; Z90.49 Acquired absence of other specified parts of digestive tract
CPT/HCPCS: 36415; 80048; 82040; 85025; 96372; 99283; J3410

== ENCOUNTER 2020-04-12 13:17 | Emergency (ER) | payer MEDICARE, MEDICAID ==
[~2020-04-12] VITALS: Ht 170.2 cm; Wt 67.0 kg
[~2020-04-12 13:17] MED LIST changes: +HYDR-3246 PO; -HYDR-36 PO
[2020-04-12 13:18] VITALS: BP 163/92
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
--- NOTE | 2020-04-12 14:33 | NUR ---
Psych PERSONAL CONSULTANT paged.
--- NOTE | 2020-04-12 15:55 | NUR ---
BRIGHT, MENTAL HEALTH PA, IN WITH PT AT THIS TIME
--- NOTE | 2020-04-12 16:06 | NUR ---
PT WAS TALKING WITH BRIGHT. GOT FRUSTERATED AND ELOPED.
== END 2020-04-12 16:08 | disposition left against medical advice (07) ==
LOC: ED 13:48
DX: L03.115 Cellulitis of right lower limb (principal); F15.122 Other stimulant abuse with intoxication with perceptual disturbance; I10 Essential (primary) hypertension; Z90.49 Acquired absence of other specified parts of digestive tract
CPT/HCPCS: 99283